=== PATIENT | female | born 1960 | race Two or more races ===

== ENCOUNTER 2020-07-01 06:53 | Day surgery (SDC) | payer OTHER ==
[~2020-07-01 06:53] MED LIST: CRESTOR10 MG; VASOTEC2.5 MG
== END 2020-07-01 12:40 | disposition home or self-care (01) ==
LOC: AMB-ENDOS 06:53
PROVIDERS: ATTEND Surgery
DX: D12.4 Benign neoplasm of descending colon (principal); D12.8 Benign neoplasm of rectum; K64.8 Other hemorrhoids; Z12.11 Encounter for screening for malignant neoplasm of colon